=== PATIENT | male | born 1975 | race Caucasian/White ===

== ENCOUNTER 2022-09-19 13:00 | Day surgery (SDC) | payer OTHER ==
[~2022-09-19] VITALS: Ht 182.9 cm; Wt 89.1 kg
[~2022-09-19 13:00] MED LIST: CLOP75 PO
== END 2022-09-19 14:44 | disposition home or self-care (01) ==
LOC: ORSCSDS 13:00
PROVIDERS: Surgery
PROC: 0DJD8ZZ Inspection of Lower Intestinal Tract, Via Natural or Artificial Opening Endoscopic (ICD-10-PCS; principal; 2022-09-19 14:30)
DX: Z12.11 Encounter for screening for malignant neoplasm of colon (principal); K64.4 Residual hemorrhoidal skin tags; K64.8 Other hemorrhoids
CPT/HCPCS: J0330; J0461; J2405; J2704; J7120; Q9968